=== PATIENT | female | born 1970 ===

== ENCOUNTER 2018-03-18 16:13 | Emergency (ER) | payer MEDICAID ==
[2018-03-18 16:20] VITALS: RESP 20
--- NOTE | 2018-03-18 16:52 | ED PDOC ---
Upper Extremity Pain/Injury Time Seen by Provider: 03/18/18 16:23 Chief Complaint (Nursing): Upper Extremity Problem/Injury Chief Complaint (Provider): Upper Extremity Problem/Injury History Per: Patient History/Exam Limitations: no limitations Onset/Duration Of Symptoms: Days (x3) Current Symptoms Are (Timing): Still Present Additional Complaint(s): 47 year old female presents to the ED complaining of ecchymosis, swelling, and pain to left upper extremity for 3 days. Patient has no history of trauma and denies CP or SOB. PMD: Allison Cortez Past Medical History Reviewed: Historical Data, Nursing Documentation, Vital Signs Vital Signs: Last Vital Signs Temp 97.9 F 03/18/18 16:16 Pulse 88 03/18/18 16:16 Resp 20 03/18/18 16:16 BP 126/83 03/18/18 16:16 Pulse Ox 97 03/18/18 16:16 - Medical History PMH: No Chronic Diseases - Surgical History Surgical History: No Surg Hx - Family History Family History: States: Unknown Family Hx - Home Medications Home Medications: Ambulatory Orders Medication Instructions Recorded traMADol [Ultram] 50 mg PO Q8 #10 tab 03/18/18 - Allergies Allergies/Adverse Reactions: Allergies Allergy/AdvReac Type Severity Reaction Status Date / Time No Known Allergies Allergy Verified 03/18/18 16:15 Review of Systems ROS Statement: Except As Marked, All Systems Reviewed And Found Negative Cardiovascular: Negative for: Chest Pain Respiratory: Negative for: Shortness of Breath Musculoskeletal: Positive for: Other (Left upper extremity ecchymosis, swelling , and pain) Physical Exam - Reviewed Nursing Documentation Reviewed: Yes Vital Signs Reviewed: Yes - Physical Exam Appears: Positive for: Non-toxic, No Acute Distress Head Exam: Positive for: ATRAUMATIC, NORMOCEPHALIC Skin: Positive for: Normal Color, Warm, Dry Eye Exam: Positive for: Normal appearance Neck: Positive for: Normal, Painless ROM Cardiovascular/Chest: Positive for: Regular Rate, Rhythm. Negative for: Murmur Respiratory: Positive for: Normal Breath Sounds. Negative for: Wheezing, Respiratory Distress Pulses-Radial (L): 2+ Extremity: Positive for: Normal ROM, Capillary Refill (normal), Other (Left upper extremity ecchymosis to the medial aspect of bicep extending to the antecubital space with questionable palpable cords of the mid forearm volar aspect. ) Neurologic/Psych: Positive for: Alert, Oriented. Negative for: Motor/Sensory Deficits - Laboratory Results Result Diagrams: 03/18/18 17:05 03/18/18 17:05 - ECG O2 Sat by Pulse Oximetry: 97 (RA) Pulse Ox Interpretation: Normal Medical Decision Making Medical Decision Making: Initial Impression: Left upper extremity ecchymosis, swelling, and pain Initial Plan: ECG CMP CBC D Dimer Chest X-ray US upper extremities US neg for DVT Pt declines CT chest. Aware of risks including failure to dx blood clot in chest and mas in chest Scribe Attestation: Documented by Dustin Bassett acting as a scribe for Guille Burris MD. Provider Scribe Attestation: All medical record entries made by the Scribe were at my direction and personally dictated by me. I have reviewed the chart and agree that the record accurately reflects my personal performance of the history, physical exam, medical decision making, and the department course for this patient. I have also personally directed, reviewed, and agree with the discharge instructions and disposition. Disposition - Clinical Impression Clinical Impression: Ecchymosis - Patient ED Disposition Is Patient to be Admitted: No Counseled Patient/Family Regarding: Studies Performed, Diagnosis, Need For Followup, Rx Given - Disposition Referrals: Moncho Gay MD [Medical Doctor] - Disposition: Routine/Home Disposition Time: 19:17 Condition: FAIR Prescriptions: traMADol [Ultram] 50 mg PO Q8 #10 tab Instructions: Contusion (DC) Forms: [employer] (Malay)
[2018-03-18 17:09] LABS: BASO % 0.4 % (0.0-2.0); EOS # 0.1 K/uL (0.0-0.7); EOS % 0.6 % (0.0-4.0); LYMPH % 21.4 % (20.0-40.0); MEAN CELL VOLUME 78.1 fl (81.0-99.0); MEAN CORPUSCULAR HEMOGLOBIN 26.3 pg (27.0-31.0); MEAN CORPUSCULAR HGB CONC 33.7 g/dL (33.0-37.0); MEAN PLATELET VOLUME 9.7 fl (7.2-11.7); MONO # 0.5 K/uL (0.0-0.8); NEUT # 6.8 K/uL (1.8-7.0); NEUT % 72.6 % (50.0-75.0); NRBC % 0.1 % (0.0-0.0); RBC 4.94 Mil/uL (3.80-5.20); RED CELL DISTRIBUTION WIDTH 15.8 % (11.5-14.5); WHITE BLOOD COUNT 9.3 K/uL (4.8-10.8)
[2018-03-18 17:19] LABS: ALB/GLOB RATIO 1.3 (1.0-2.1); ALBUMIN 4.1 g/dL (3.5-5.0); ALT/SGPT 23 U/L (9-52); AST/SGOT 19 U/L (14-36); BLOOD UREA NITROGEN 10 mg/dl (7-17); CALCIUM 9.1 mg/dL (8.4-10.2); GFR NON-AFRICAN AMERICAN > 60
--- NOTE | 2018-03-18 17:27 | RAD ---
HISTORY: DVT LUE COMPARISON: None available. TECHNIQUE: Chest PA and lateral FINDINGS: LUNGS: No focal consolidation. Please note that chest x-ray has limited sensitivity for the detection of pulmonary masses. PLEURA: No significant pleural effusion identified. No definite pneumothorax . CARDIOVASCULAR: Heart size appears within normal limits. OSSEOUS STRUCTURES: No acute osseous abnormality identified. VISUALIZED UPPER ABDOMEN: Unremarkable. OTHER FINDINGS: None. IMPRESSION: No focal consolidation, significant pleural effusion, or definite pneumothorax identified.
--- NOTE | 2018-03-18 18:59 | US ---
Left upper extremity ultrasound Indication: DVT Technique: Duplex ultrasound evaluation of the left upper extremity Comparison: None available Findings: There is normal flow and compressibility of the left brachial, basilic, axillary, and cephalic veins. Normal flow is demonstrated in the left subclavian and internal jugular vein. Impression: No evidence of deep venous thrombosis in the left upper extremity.
[2018-03-18] MEDS ORDERED: Iodixanol 320 MG/ML 100 ML BOTTLE IV ONE (19:15)
[2018-03-18] MEDS ORDERED: Sodium Chloride 0.9% 0 ML IV ONE (19:15)
[2018-03-18 19:31] VITALS: BP 120/70; PULSE 76; TEMP 98; O2SAT 98
--- NOTE | 2018-03-19 08:25 | CARD ---
APPROVED REPORT Date of service: 03/18/2018 <Conclusion> Normal sinus rhythm Normal ECG
== END 2018-03-18 19:30 | disposition home or self-care (01) ==
LOC: H.ER 16:13
DX: R58 Hemorrhage, not elsewhere classified (principal)